=== PATIENT | female | born 1980 | race Caucasian/White ===

== ENCOUNTER → 2017-09-28 | Day surgery (SDC) | payer BC ==
[~2017-09-28] MED LIST: AMBIEN10 MG PO; BUPROPION HCL100 MG PO; DEXAMETHASONE1.5 MG PO; DIAZEPAM5 MG PO; DICYCLOMINE HCL20 MG PO; FENTANYL CITRATE/PF 100MCG/2 ML INJ ONE; HYOSCYAMINE SULFATE 0.5 MG/ML AMP ONE; LIDOCAINE HCL 2% LOCAL INJ 5 ML SDV VIAL INJ ONE; LINZESS PO; MIDAZOLAM HCL 2 MG/2 ML VIAL ONE; NAPROXEN250 MG PO; NORCO 7.5-3251 EACH PO; ONDANSETRON HCL8 MG PO; PANTOPRAZOLE SO40 MG PO; PROPOFOL IV EMULSION 10 MG/ML 50 ML VIAL ONE; SERTRALINE HCL50 MG PO; ULTRAM50 MG PO
--- OUTSIDE RECORDS SUMMARY | 2017-09-28 08:54 | XMS REPORT | Clinical Summary ---
Author Author [facility] Organization [facility] Address Unknown Phone Unavailable Care Team Providers Care Senior Account Director Name Role Phone Asked, Pcp PCP Unavailable Allergies No Known Allergies Current Medications Prescription Sig. Disp. Refills Start End Date Status Date phentermine (ADIPEX-P) Take 37.5 mg by mouth Active 37.5 mg tablet daily before breakfast. traMADol (ULTRAM) 50 mg Take 50 mg by mouth every 09/02/19 Discontin tablet 6 (six) hours as needed 18 ued for moderate pain. traMADol (ULTRAM) 50 mg Take 1 tablet (50 mg 20 tablet 1 09/02/19 tabletIndications: Pelvic total) by mouth every 6 18 18 pain, Acute bilateral low (six) hours as needed for back pain with bilateral moderate pain for up to 7 sciatica days. naproxen (NAPROSYN) 500 Take 1 tablet (500 mg 20 tablet 1 09/02/19 09/09/19 MG tabletIndications: total) by mouth 2 (two) 18 18 Pelvic pain, Acute times a day with meals bilateral low back pain for 7 days. with bilateral sciatica Active Problems Not on file Encounters Date Type Specialty Care Team Description 09/01/2017 Office Visit Obstetrics and Gynecology Emily Espinoza MD Pap smear for cervical cancer screening (Primary Dx); Pelvic pain; Acute bilateral low back pain with bilateral sciatica after 09/27/2016 Social History Tobacco Use Types Packs/Day Years Used Date Never Smoker Smokeless Tobacco: Never Used Alcohol Use Drinks/Week oz/Week Comments Yes Sex Assigned at Date Recorded Not on file Last Filed Vital Signs Vital Sign Reading Time Taken Blood Pressure 138/84 09/01/2017 10:33 AM CDT Pulse 69 09/01/2017 10:33 AM CDT Temperature 36.9 C (98.4 F) 09/01/2017 10:33 AM CDT Respiratory Rate - - Oxygen Saturation - - Inhaled Oxygen - - Concentration Weight 90.9 kg (200 lb 6.4 oz) 09/01/2017 10:33 AM CDT Height 162.6 cm (5' 4") 09/01/2017 10:33 AM CDT Body Mass Index 34.4 09/01/2017 10:33 AM CDT Plan of Treatment Health Maintenance Due Date Last Done Comments INFLUENZA VACCINE 12/21/2017 PAP SMEAR 09/01/2020 09/01/2017 Results * CHLAMYDIA/N. GONORRHOEAE RNA, TMA (09/01/2017 11:18 AM) Component Value Ref Range Chlamydia trachomatis NOT DETECTED NOT DETECTED RNA, TMA Neisseria gonorrhoeae NOT DETECTED NOT DETECTED RNA, TMA (Always message) Comment: This test was performed using the [employer] COMBO2 Assay ([employer] The analytical performance characteristics of this assay, when used to test [facility] specimens have been determined by [facility]. Specimen Performing [facility] * THINPREP TIS PAP REFLEX HPV mRNA E6/E7 (09/01/2017 11:18 AM) Component Value Ref Range Clinical information None given Date of last menstrual NONE GIVEN period Prev. pap: NONE GIVEN Prev. bx: NONE GIVEN Source None given Statement of adequacy Comment: Satisfactory for evaluation. Endocervical/transformation zone component present. Age and/or menstrual status not provided Interpretation/result: Comment: Negative for intraepithelial lesion or malignancy. Infection Comment: Fungal organisms morphologically consistent with Aleja spp. Comment Comment: This Pap test has been evaluated with computer assisted technology. Manufacturing Plant Technician Comment: [facility], [place](ASCP) CT screening location: [place] [address] [address] [place] [id number] Review creative engagement director Comment: [facility] CT(ASCP) CT screening location: [place] [address] [address] [place] [address] Comment Comment: EXPLANATORY NOTE: The Pap is a screening test for cervical cancer. It is not a diagnostic test and is subject to false negative and false positive results. It is most reliable when a satisfactory sample, regularly obtained, is submitted with relevant clinical findings and history, and when the Pap result is evaluated along with historic and current clinical information. Specimen Performing Laboratory [facility] * Urinalysis, automated with microscopy (09/01/2017 10:58 AM) Component Value Ref Range Color, UA YELLOW YELLOW Appearance CLEAR CLEAR Specific gravity, urine 1.019 1.001 - 1.035 pH, urine 5.5 5.0 - 8.0 Glucose, urine NEGATIVE NEGATIVE Bilirubin, UA NEGATIVE NEGATIVE Ketones, UA NEGATIVE NEGATIVE Occult blood, urine NEGATIVE NEGATIVE Protein, UA NEGATIVE NEGATIVE Nitrite, UA NEGATIVE NEGATIVE Leukocyte esterase, UA NEGATIVE NEGATIVE WBC, UA 0-5 < OR=5 /HPF RBC, UA 0-2 < OR=2 /HPF Squamous epithelial 0-5 < OR=5 /HPF cells, UA Bacteria, UA FEW (A) NONE SEEN /HPF Hyaline casts, UA NONE SEEN NONE SEEN /LPF Specimen Performing Laboratory [facility] * Urine culture (09/01/2017 10:58 AM) Component Value Ref Range Urine culture SEE NOTE Comment: CULTURE, URINE, ROUTINE MICRO NUMBER: [id number] TEST STATUS: FINAL SPECIMEN SOURCE: URINE SPECIMEN QUALITY: ADEQUATE RESULT: No Growth Specimen Performing Laboratory U[facility] after 09/27/2016 Insurance Payer Benefit Subscriber ID Type Phone Address Plan / Group BCBS BCBS xxxxxxxxxxxx PPO CHOICE PPO/[id number] NAVARRO PPO
--- NOTE | 2017-09-28 13:13 | Operative Report ---
DATE OF PROCEDURE: September 28, 2017 REFERRING PHYSICIAN: Dr. De La Torre. PROCEDURE PERFORMED: 1. Esophagogastroduodenoscopy with biopsies and esophageal dilatation. 2. Colonoscopy with polypectomy. INDICATIONS FOR ESOPHAGOGASTRODUODENOSCOPY: Dysphagia to solids, nausea. INDICATIONS FOR COLONOSCOPY: Colorectal cancer screening, personal history of colon polyps, father with colon cancer, and new-onset constipation. MEDICATION: Patient was done under MAC. Please see anesthesiologist's note. PROCEDURE: With the patient in the left lateral decubitus position, the flexible fiberoptic Olympus gastroscope was introduced into the esophagus under direct visualization without any difficulty. There was some patchy erythema noted in the distal esophagus. There was a mild stricture noted at the GE junction, and that was dilated to size 52-Prydeinig Anderson. The scope was then advanced with ease into the stomach, and mucosa overlying the antrum and the body revealed some patchy erythema and moderate edema, and biopsies were obtained and sent to stain for H. pylori. Pylorus appeared to be of normal contour and shape, was intubated with ease, and the scope was advanced all the way to the 2nd portion of the duodenum. The scope was then withdrawn slowly. Mucosa overlying the proximal 2nd portion and the duodenal bulb appeared to be within normal limits. The scope was then withdrawn back into the stomach and retroflexed, and the mucosa overlying the fundus and the cardia appeared to be within normal limits. The scope was then straightened out. The stomach was decompressed. The scope was subsequently withdrawn. Patient tolerated the procedure well. IMPRESSION: 1. Distal esophagitis, mild. 2. Esophageal stricture at gastroesophageal junction, mild, dilated to size 52-Prydeinig Anderson. 3. Gastritis biopsied. Biopsies sent to stain for H. pylori. PLAN: Follow up histology. Initiate Protonix 40 mg 1 p.o. q.a.m. a.c. Patient was then turned around and after adequate lubrication of the anal canal, a flexible fiberoptic Olympus colonoscope was inserted into the rectum with ease and advanced all the way to the cecum. It was then withdrawn slowly. Mucosa overlying the cecum, ascending colon, transverse colon, descending and sigmoid appeared to be within normal limits. One polyp was hot biopsied from the rectum. The scope was then retroflexed into the distal rectum and small internal hemorrhoids were noted, none of which was actively bleeding. The scope was then straightened out. The scope was subsequently withdrawn. Patient tolerated procedure well. IMPRESSION: 1. Rectal polyp hot biopsied. 2. Internal hemorrhoids, none actively bleeding. PLAN: Follow up histology. Initiate high-fiber low-fat diet. Initiate high-fiber supplement. Check TSH. Patient will need a followup colonoscopy in 3 years. Job#: [id number] EV cc: DR. DE LA TORRE
== END | disposition home or self-care (01) ==
LOC: ENDO 08:51
PROVIDERS: ATTEND Internal Medicine Gastroenterology
DX: Z12.11 Encounter for screening for malignant neoplasm of colon (principal); K62.1 Rectal polyp; K29.70 Gastritis, unspecified, without bleeding; K22.2 Esophageal obstruction; K20.9 Esophagitis, unspecified; K21.9 Gastro-esophageal reflux disease without esophagitis; K59.00 Constipation, unspecified; K64.8 Other hemorrhoids; G81.94 Hemiplegia, unspecified affecting left nondominant side; F32.9 Major depressive disorder, single episode, unspecified; F41.9 Anxiety disorder, unspecified; Z68.34 Body mass index [BMI] 34.0-34.9, adult; Z80.0 Family history of malignant neoplasm of digestive organs
CPT/HCPCS: 43239; 43450; 45384; 81025; J1980; J2001; J2250; 45378

== ENCOUNTER → 2017-10-31 | Outpatient (CLI) | payer BC ==
[~2017-10-31] MED LIST changes: -FENTANYL CITRATE/PF 100MCG/2 ML INJ ONE; -HYOSCYAMINE SULFATE 0.5 MG/ML AMP ONE; -LIDOCAINE HCL 2% LOCAL INJ 5 ML SDV VIAL INJ ONE; -MIDAZOLAM HCL 2 MG/2 ML VIAL ONE; -PROPOFOL IV EMULSION 10 MG/ML 50 ML VIAL ONE
== END ==
LOC: MRI 07:32
PROVIDERS: ATTEND Internal Medicine Gastroenterology
DX: M54.5 Low back pain (principal); M54.17 Radiculopathy, lumbosacral region